=== PATIENT | female | born 1985 | race Caucasian/White ===

== ENCOUNTER 2017-08-29 20:44 | Emergency (ER) | payer MEDICAID, OTHER ==
[~2017-08-29] VITALS: Ht 154.9 cm; Wt 63.5 kg
[2017-08-29 22:22] LABS: *BILIRUBIN,URIN NEGATIVE (NEGATIVE); *BLOOD, URINE NEGATIVE (NEGATIVE); *CLARITY,URINE CLOUDY (CLEAR); *COLOR,URINE YELLOW (YELLOW); *KETONES,URINE NEGATIVE (NEGATIVE); *PROTEIN,URINE NEGATIVE (NEGATIVE); *UROBILINOGEN,URINE 0.2 E.U./dl (NORMAL); LEUKOCYTE ESTERASE ,URINE TRACE (NEGATIVE); NITRITE, URINE NEGATIVE (NEGATIVE); UGLUCOSE NEGATIVE (NEGATIVE)
[2017-08-29 22:24] LABS: *URINE HCG, QUAL NEGATIVE (NEGATIVE)
[2017-08-29 22:26] LABS: RBC,URINE NONE SEEN /HPF (0-3)
[2017-08-29 22:27] LABS: SQUAMOUS EPITHELIAL CELL,UR MODERATE /HPF (NONE SEEN)
--- NOTE | 2017-08-29 22:30 | NUR ---
PATIENT WATCHING TV WITH NO DISTRESS NOTED
[2017-08-30 01:02] VITALS: BP 122/70
--- NOTE | 2017-08-30 01:02 | NUR ---
Patient given written and verbal discharge instructions. Patient verbalizes understanding of instructions. Patient is ambulatory with steady gait. Refuses offer of assisted placement. Patient given list of available shelters in surrounding area.
--- NOTE | 2017-08-30 01:02 | NUR ---
Naga cruz in EDM - 08/30/17 at 0102 by STEVEN Patient discharged to home in stable conditon. Written and verbal after care instructions given. Patient verbalizes understanding of instructions.
== END 2017-08-30 01:03 | disposition home or self-care (01) ==
LOC: ER 20:45
DX: S06.0X0A Concussion without loss of consciousness, initial encounter (principal); Z59.0 Homelessness; W22.8XXA Striking against or struck by other objects, initial encounter; Y93.89 Activity, other specified; Y92.9 Unspecified place or not applicable; Y99.9 Unspecified external cause status
CPT/HCPCS: 70450; 84703; A4663

== ENCOUNTER 2020-11-11 01:23 | Emergency (ER) | payer MEDICAID, OTHER ==
[~2020-11-11] VITALS: Ht 160 cm; Wt 68.0 kg
--- NOTE | 2020-11-11 03:25 | NUR ---
Patient walked into ER for c/o nausea x 2 days. After patient was brought into room, patient removed her shirt, pants and was open drawers removing supplies like alcohol pads, syringes. patient was put in hospital gown, and palced in bed. Will monitor.
[2020-11-11] MEDS: LORAZEPAM 0.5 MG TABLET PO ONE (03:31)
[2020-11-11] MEDS: ONDANSETRON ODT 4 MG TAB.RAPDIS SL ONE (03:31)
[2020-11-11] MEDS ORDERED: LORAZEPAM 1 MG TABLET ONE (03:34)
[2020-11-11] MEDS ORDERED: ONDANSETRON ODT 4 MG TAB.RAPDIS ONE (03:34)
[2020-11-11] MEDS: diphenhydrAMINE 25 MG CAP PO ONE (03:38)
[2020-11-11] MEDS ORDERED: ACETAMINOPHEN ES 500 MG TABLET ONE (03:38)
[2020-11-11] MEDS ORDERED: diphenhydrAMINE 25 MG CAP PO ONE (03:38)
[2020-11-11] MEDS: ACETAMINOPHEN ES 500 MG TABLET PO ONE (03:38)
--- NOTE | 2020-11-11 03:55 | NUR ---
Patient is unable to provide urine at this time.
[2020-11-11 03:59] LABS: BASOPHILS # (AUTO) 0.1 K/uL (0.0-8.0); BASOPHILS % (AUTO) 1.4 % (0.0-2.0); EOSINOPHILS # (AUTO) 0.1 K/uL (0.0-0.7); HEMATOCRIT 37.6 % (31.2-41.9); LYMPHOCYTES # (AUTO) 1.5 K/uL (20.0-40.0); LYMPHOCYTES % (AUTO) 19.9 % (20.5-51.5); MEAN CORPUSCULAR HEMOGLOBIN 34.3 uug (24.7-32.8); MEAN CORPUSCULAR HGB CONC 35 g/dL (32.3-35.6); MEAN CORPUSCULAR VOLUME 99.2 fL (75.5-95.3); MONOCYTES # (AUTO) 0.5 K/uL (2.0-10.0); MONOCYTES % (AUTO) 6.8 % (0.0-11.0); NEUTROPHILS # (AUTO) 5.4 K/uL (1.8-8.9); NEUTROPHILS % (AUTO) 70.9 % (38.5-71.5); PLATELET COUNT (AUTO) 248 K/uL (179-408); RED BLOOD CELL COUNT(AUTO) 3.79 MIL/uL (3.63-4.92); WHITE BLOOD COUNT (AUTO) 7.6 K/uL (3.8-11.8)
[2020-11-11 04:12] LABS: CARBON DIOXIDE 22 mmol/L (21-32); CHLORIDE 100 mmol/L (98-107); GLUCOSE 89 mg/dL (74-106); POTASSIUM 3.5 mmol/L (3.5-5.1); UREA NITROGEN, BLOOD 8 mg/dL (7-18)
[2020-11-11 04:18] LABS: ALANINE AMINOTRANSFERASE 53 U/L (14-59); ALKALINE PHOSPHATASE 88 U/L (50-136); ASPARTATE AMINOTRANSFERASE 64 U/L (15-37); BILIRUBIN,DIRECT 0.4 mg/dL (0.0-0.2); BILIRUBIN,TOTAL 0.9 mg/dL (0.2-1.0); TOTAL PROTEIN, SERUM 8.2 g/dL (6.4-8.2)
[2020-11-11 04:24] LABS: ACETAMINOPHEN < 2.0 ug/mL (10-30)
[2020-11-11 04:25] LABS: THYROID STIMULATING HORMONE 2.082 mIU/mL (0.358-3.740)
[2020-11-11 04:30] LABS: ETHANOL < 3 MG/DL (0-0)
--- NOTE | 2020-11-11 04:51 | NUR ---
Patient asleep at this time, respirations even and unlabored.
--- NOTE | 2020-11-11 07:04 | NUR ---
Hand off to HANS Kang
--- NOTE | 2020-11-11 07:43 | NUR ---
PT WAS D/C'd FROM EMERGENCY ROOM ACCORDING TO DR JACK ORDERS. PT REQUESTED TO TALK TO REACTOR KETTLE OPERATOR. REACTOR KETTLE OPERATOR KRISHNA WAS CALLED TO TALK TO THE PT.
[2020-11-11 07:44] VITALS: BP 139/81
== END 2020-11-11 07:46 | disposition home or self-care (01) ==
LOC: ER 01:35
DX: R11.2 Nausea with vomiting, unspecified (principal); F41.9 Anxiety disorder, unspecified; Z59.0 Homelessness; F15.10 Other stimulant abuse, uncomplicated; F31.9 Bipolar disorder, unspecified
CPT/HCPCS: 80048; 80076; 80299; 80307; 80320; 84443; 84702; 85025; 99284; Q0163; 36415; A4663; A9150; G0480; Q0162

== ENCOUNTER 2020-11-11 09:11 | Emergency (ER) | payer MEDICAID, OTHER ==
[~2020-11-11] VITALS: Ht 162.6 cm; Wt 68.0 kg
--- NOTE | 2020-11-11 09:32 | NUR ---
PT IS IN ROOM #1A. DR JACK EVALUATED THE PT. GRAIN MERCHANDISER SHAKEH EVALUATED THE PT. PT STATED SHE IS SUICIDAL. GRAIN MERCHANDISER SHAKEH IS WORKING ON PT's PLACEMENT.
[2020-11-11] MEDS: LORAZEPAM 0.5 MG TABLET PO ONE (10:16)
[2020-11-11] MEDS ORDERED: LORAZEPAM 1 MG TABLET ONE (10:19)
--- NOTE | 2020-11-11 10:45 | NUR ---
PT IS RESTING IN BED COMFORTABLY. CONTINUE TO MONITOR THE PT.
--- NOTE | 2020-11-11 10:46 | NUR ---
[employer] Manager Consultation: This SW met with the patient, who is a 35 year old female. Patient is receptive to meeting with this SW. Patient is homeless, and reports suicidal ideation, stating she wants to cut her wrists. Patient reports dx of Bipolar Disorder, Type II and Major Depressive Disorder. Patient reports not receiving any mental health services, and wanting help now. Patient reports hx of SI, hx of 5150 holds, and hx of psychiatric hospitalizations. This SW discussed voluntary psychiatric hospitalization, and patient expressed agreement. SW offered to refer patient to [place] or [facility], and patient stated that she prefers [facility]. Patient states that she has a daughter, who lives with patient's mother in [place]. Throughout this interview, patient presented restless. Affect was flat. Appearance was disheveled. Patient's tone of voice was low. Patient denied visual hallucinations, but admitted to auditory hallucinations, stating that she tends to hear "noise". SW informed HANS Mcgregor that this SW will refer patient to [facility] for possible placement.
[2020-11-11 11:04] LABS: *AMPHETAMINE, URINE POSITIVE (NEGATIVE); *CANNABINOID, URINE NEGATIVE (NEGATIVE); *COCCAINE, URINE NEGATIVE (NEGATIVE); *OPIATE, URINE NEGATIVE (NEGATIVE); *PHENCYCLIDINE SCREEN,URINE NEGATIVE (NEGATIVE)
[2020-11-11] MEDS: HYDROCODONE/APAP 5-325MG TABLET PO ONE (11:18)
[2020-11-11] MEDS ORDERED: HYDROCODONE/APAP 5-325MG TABLET ONE (11:18)
--- NOTE | 2020-11-11 12:31 | NUR ---
This SW faxed patient's records to Anup at [facility] for review. . RENETTA informed ED nurse Ronel that records have been faxed; pending response.
--- NOTE | 2020-11-11 14:19 | NUR ---
2:10pm: RENETTA received a call from Stefania at [facility], intake department, stating that patient has been accepted to [facility], [address] [place] [id number]. Stefania stated that patient will be accepted to [address], under the care of Dr. Pedersen. Stefania asked for patient's nurse to call [facility] at [phone] to provide nursing report, after which patient can be transferred. RENETTA spoke with ED RN Jorge Luis and informed him of above. HANS Kang to call [facility] to provide report, after which Jorge Luis will arrange for patient to be transported to [facility] by ambulance.
--- NOTE | 2020-11-11 14:43 | NUR ---
SW provided instructions for HANS Kang to provide patient with the homeless resource packet and to have patient sign the homeless patient waiver form.
--- NOTE | 2020-11-11 15:44 | NUR ---
PT WAS TRANSFERED TO [facility] [facility]IA [facility]UL[facility]. ACCEPTING MD IS DR MARIO. REPORT WAS GIVEN TO HANS CONNER AND TO AMBULANCE EMT.
== END 2020-11-11 15:52 ==
LOC: ER 09:11
DX: R45.851 Suicidal ideations (principal); F15.10 Other stimulant abuse, uncomplicated; Z82.49 Family history of ischemic heart disease and other diseases of the circulatory system; Z20.828 Contact with and (suspected) exposure to other viral communicable diseases; F31.9 Bipolar disorder, unspecified
CPT/HCPCS: A4663

== ENCOUNTER 2021-10-13 20:00 | Emergency (ER) | payer MEDICAID ==
[~2021-10-13] VITALS: Ht 157.5 cm; Wt 82.6 kg
--- NOTE | 2021-10-13 20:08 | NUR ---
NO BEDS AVAILABLE, SENT BACK TO WAITING ROOM TO WAIT FOR BED AVAILABLITY.
--- NOTE | 2021-10-13 20:33 | NUR ---
PATIENT WAS ESCORTED OUT OF WAITING ROOM BY HOSPITAL'S [facility]URDS DUE TO PATIENT BEING UNCOOPERATIVE AND YELLING AT STAFF MEMBER.
== END 2021-10-13 20:33 | disposition left against medical advice (07) ==
LOC: ER 20:00
DX: Z53.21 Procedure and treatment not carried out due to patient leaving prior to being seen by health care provider (principal)
CPT/HCPCS: A4663